=== PATIENT | female | born 1960 | race Caucasian/White ===

== ENCOUNTER 2020-04-21 11:04 | Outpatient (REF) | payer OTHER, SELFPAY ==
[2020-04-22 11:48] LABS: CT PCR NOT DETECTED (Not Detect.); NG PCR NOT DETECTED (Not Detect.)
[2020-04-27 08:37] LABS: HPV 16 RNA NOT DETECTED (NOT DETECTED); HPV mRNA E6/E7 Detected (Not Detected)
== END 2020-04-21 11:05 | disposition home or self-care (01) ==
LOC: HO.LNP 11:04
PROVIDERS: PCP Internal Medicine; Referring Provider Internal Medicine; Visit Provider Advanced Practice Midwife
DX: Z01.818 Encounter for other preprocedural examination (principal); Z12.31 Encounter for screening mammogram for malignant neoplasm of breast; Z72.0 Tobacco use; Z20.2 Contact with and (suspected) exposure to infections with a predominantly sexual mode of transmission
CPT/HCPCS: 87491; 87591; 87624; 87625; 88141; 88142

== ENCOUNTER 2020-08-11 13:55 | Outpatient (REF) | payer OTHER, SELFPAY | END 2020-08-11 13:56 | disposition home or self-care (01) | LOC: HO.LAB 13:55 | PROVIDERS: PCP Internal Medicine; Visit Provider Obstetrics & Gynecology | DX: R87.610 Atypical squamous cells of undetermined significance on cytologic smear of cervix (ASC-US) (principal); R87.810 Cervical high risk human papillomavirus (HPV) DNA test positive; E78.00 Pure hypercholesterolemia, unspecified; F17.210 Nicotine dependence, cigarettes, uncomplicated; Z91.09 Other allergy status, other than to drugs and biological substances | CPT/HCPCS: 57454; 88300; 88305 ==

== ENCOUNTER → 2020-08-18 11:52 | Outpatient (BNVA) | payer OTHER, SELFPAY | PROVIDERS: PCP Internal Medicine; Visit Provider Obstetrics & Gynecology | DX: R87.610 Atypical squamous cells of undetermined significance on cytologic smear of cervix (ASC-US) (principal); R87.810 Cervical high risk human papillomavirus (HPV) DNA test positive ==

== ENCOUNTER 2021-04-21 15:59 | Outpatient (REF) | payer MEDICARE, OTHER, SELFPAY ==
--- NOTE | ~2021-04-21 | MM_ITS ---
EXAMINATION: MM SCREENING DIGITAL BREAST TOMOSYNTHESIS, BILATERAL CLINICAL INFORMATION: Screening. Asymptomatic. The lifetime risk of breast cancer based on the Tyrer-Cuzick Model is 9%. COMPARISON: Mammography: 09/26/2017, 06/23/2015 TECHNIQUE: Digital breast tomosynthesis is performed in both the craniocaudal and mediolateral oblique views along with computer-aided detection (CAD). Synthesized 2D images are generated from the tomosynthesis. Additional left MLO view is provided. FINDINGS: The breasts are heterogeneously dense, which may obscure small masses (ACR BI-RADS breast composition Category c). Breast tissue composition borders on average fibroglandular. Denser breast parenchyma areas in the anterior breasts. There is fine, nodular parenchymal pattern similar to prior exams. There is no developing density or interval mass or architectural abnormality. No abnormal calcifications. The axilla and skin contours are unremarkable. MM/MM tomosynthesis screening BI IMPRESSION: No mammographic evidence of malignancy. ASSESSMENT: BI-RADS 1: Negative RECOMMENDATION: Routine annual mammography screening. This patient's information was entered into a reminder system with a target due date for their next mammogram.
== END 2021-04-21 16:00 | disposition home or self-care (01) ==
LOC: HO.MAMMO 15:59
PROVIDERS: PCP Internal Medicine; Visit Provider Advanced Practice Midwife
DX: Z12.31 Encounter for screening mammogram for malignant neoplasm of breast (principal)
CPT/HCPCS: 77063; 77067

== ENCOUNTER → 2025-02-02 14:00 | Outpatient (BNV) | payer MEDICARE, OTHER, SELFPAY | PROVIDERS: PCP Internal Medicine; Visit Provider Radiology Body Imaging | DX: N64.4 Mastodynia (principal) | CPT/HCPCS: 76642; 77066; G0279 ==

== ENCOUNTER 2025-02-02 14:15 | Outpatient (REF) | payer MEDICARE, OTHER, SELFPAY ==
--- NOTE | ~2025-02-02 | US_ITS ---
EXAMINATIONS: 1. MM DIAGNOSTIC DIGITAL BREAST TOMOSYNTHESIS, BILATERAL 2. Targeted ultrasound of the left breast CLINICAL INFORMATION: Left breast pain COMPARISON: Comparison made to multiple prior, most recent April 21, 2021, and most remote June 23, 2015. TECHNIQUE: Digital breast tomosynthesis is performed in both the craniocaudal and mediolateral oblique views along with computer-aided detection (CAD). Synthesized 2D images are generated from the tomosynthesis. A triangular skin marker is placed at the location of the pain in the upper outer quadrant of the left breast. FINDINGS: BREAST COMPOSITION: The breasts are heterogeneously dense, which may obscure small masses (ACR BI-RADS breast composition Category c). RIGHT BREAST: No significant masses, suspicious calcifications or other abnormalities are seen. LEFT BREAST: No significant masses, suspicious calcifications or other abnormalities are seen. In particular, no suspicious mammographic findings in the vicinity of the triangular skin marker. Targeted ultrasound was performed at the location of the pain as indicated by the patient. The survey was performed from 1:00-2:00 axis, from 2 to 10 cm from the nipple. No suspicious sonographic finding is seen. US/US breast LT limited mamm only IMPRESSION: RIGHT BREAST: Negative, no mammographic evidence of malignancy. Normal interval follow-up is recommended in 12 months. LEFT BREAST: Negative, no evidence of malignancy. In particular, no suspicious findings to account for the patient's history focal pain. Clinical follow-up is recommended. Otherwise, normal interval follow-up mammogram is recommended in 12 months. ASSESSMENT: BI-RADS 1 - Negative RECOMMENDATION: 1 year F/U Results were provided to the patient at time of visit by the technologist. This patient's information was entered into a reminder system with a target due date for their next mammogram. Electronically signed by: Mell Emerson MD 02/02/2025 03:58 PM EDT
--- OUTSIDE RECORDS SUMMARY | 2025-02-02 14:23 | XMS_ITS | Clinical Summary ---
Author Organization [facility] [employer] [facility] lin Address [address] [facility] [address] Care Team Providers Care Tele Marketing Executive Name Role Phone Pcp, No Primary Care Provider [phone] Immunizations Name Administration Dates Next Due Adacel (Tdap) Prefilled Syringe 03/30/2022 Covid-19 Unspecified 05/14/2023 Flucelvax Trivalent Prefille d Syringe (18+MOS) 07/04/2024 Fluzone Trivalent Multi-dose Vial (36+ months) 03/30/2009 Influenza, Unspecified 04/20/2021,05/21/2020, Pfizer Comirnaty Covid-19 Pr efilled Syringe (12+ yrs) 07/04/2024 Pneumococcal Polysaccharide 08/17/2023, 8 Rsv, Recombinant, Protein Etienne bunit Rsvpref3, Adjuvant Recon 08/17/2023 Shingrix Recombinant Dose 08/28/2021,05/21/2021 Td, Unspecified 04/08/2004 Tdap 10/09/2014 Social History Tobacco Use Types Packs/Day Years Used Date Smoking Tobacco: Never Assessed Comments Unknown Sex and Gender Information Value Date Recorded Sex Assigned at Not on file Legal Sex Female 1:02 PM EST Gender Identity Not on file Sexual Orientation Not on file Plan of Treatment Health Maintenance Due Date Last Done Comments Colorectal Cancer: COLONOSCO PY Screening every 10 yrs (or Modifier) 1961 Depression: Screening Annual ly using PHQ-2/9 in Adults 18 yrs or above (or HM Modifier)([facility]) 1979 Hepatitis C Virus Infection in Adolescents and Adults: Screening (or Modifier) ([facility]) 1979 SDOH Screening Reminder: Dacia lee for all adults ([facility]) 1979 Tobacco Smoking Cessation: i n Adults excluding Women: Behavioral and Pharmacotherapy Interventions ([facility]) 1979 Cervical Cancer Screenin 1-65 yrs of age (or Modifier) 1982 Cervical Cancer Screening: P ap every 3 yrs pts age 21-65 1982 Cervical Cancer: Pap Screeni ng with Modifier timing ([facility] ) 1982 Cervical Cancer: hrHPV alone or with cotesting Pap for Pts 30-65yrs screening every 5yrs ([facility] ) 1982 Colorectal Cancer Screening 45 -75 Yrs (or HM Modifier) 2006 Colorectal Cancer: FLEXIBLE SIGMOIDOSCOPY Screening every 5 yrs 2006 Colorectal Cancer: Fecal Immunochemical Test (FIT) [facility] 2006 Colorectal Cancer: High-sensitivity gFOBT Screening Annually [facility] 2006 Colorectal Cancer: Stool Col oguard Screening every 3 yrs 2006 Colorectal Cancer:CT Colonog lynnette Screening every 5 yrs 2006 Breast Cancer: Screening Dacia ually age 50-74 yrs (or HM Modifier)([facility] ) 2011 Pneumococcal Vaccination Screening: Patients 50+ yrs of age ([facility] ) (2 of 2 - PCV) 08/17/2024 08/17/2023, 04/03/2018 Flu Vaccination: Yearly for ages 18mos through 64 years (or Modifier)([facility] ) 01/30/2025 07/04/2024, 04/20/2021, 05/21/2020, Additional history exists DTaP/Tdap/Td Vaccines ([facility]) (3 - Td or Tdap) 03/30/2032 03/30/2022, 10/09/2014, 04/08/2004 Zoster/Shingles Vaccine Seri es Screening: Adults aged 18+ yrs (or HM Modifiers)([facility]) Completed 08/28/2021, 05/21/2021 Pneumococcal Vaccination Screening: Pts 0-19 & 19-49 yrs of age ([facility]) Discontinued 08/17/2023, 04/03/2018 RSV Vaccines Completed 08/17/2023 COVID-19 Vaccine Screening: Initial Series and Booster Status ([facility]) Completed 07/04/2024, 05/14/2023, 06/20/2021, Additional history exists Medical Devices Not on file Insurance MEDICARE [facility] Care Teams Tele Marketing Executive Relationship Specialty Start Date End Date Pcp, Stephanie PCP - General Family Medicine 07/04/24
--- OUTSIDE RECORDS SUMMARY | 2025-02-02 14:23 | XMS_ITS | Clinical Summary ---
Author Organization [employer] Address [address] [place] [address] [address] [place] [address] Care Team Providers Care Bus Dispatcher Interstate Name Role Phone Unavailable Primary Care Provider Unavailabl e Allergies No known active allergies Medications No known medications Social History Tobacco Use Types Packs/Day Years Used Date Smoking Tobacco: Every Day Cigarettes Smokeless Tobacco: Never Tobacco Cessation:Ready to Q uit: Not Asked; Counseling Given: Not Answered Alcohol Use Standard Drinks/Week Comments Never 0 (1 standard drink = 0.6 oz pur e alcohol) Comments Unknown Sex and Gender Information Value Date Recorded Sex Assigned at Female 08/14/2022 2:52 PM EST Legal Sex Female 2:47 PM EST Gender Identity Female 08/14/2022 2:52 PM EST Sexual Orientation Straight 08/14/2022 2: 52 PM EST Last Filed Vital Signs Vital Sign Reading Time Taken Comments Blood Pressure 130/82 08/15/2022 9:22 AM EST Pulse 60 08/15/2022 9:22 AM EST Temperature - - Respiratory Rate - - Oxygen Saturation - - Inhaled Oxygen Concentration - - Weight - - Height - - Body Mass Index - - Plan of Treatment Health Maintenance Due Date Last Done Comments CT Colonography 1961 Colonoscopy 1961 Colorectal Cancer Screening 1961 Dental Oral Exam 1961 Dental Prophylaxis 1961 Dental X-Ray: Bitewings 1961 Dental X-Ray: Full Mouth 1961 Depression Screening 1961 FIT DNA/Cologuard 1961 FIT 1961 FOBT 1961 HIV Screening 1961 SDOH Screening 1961 Sigmoidoscopy 1961 Disability Screening 1961 Alcohol/Substance Use Screening 1973 Hepatitis C Screening 1979 Pap Smear 1982 Cervical Cancer Screening 1991 HPV/Cotest 1991 Mammogram 2001 Pneumococcal Vaccine: 50+ Years (2 of 2 - PCV) 04/03/2019 04/03/2018 Tobacco Screening 08/14/2023 08/14/2022 COVID-19 Vaccine ( season) 2024 06/20/2021, 11/13/2020, 10/23/2020 DTaP/Tdap/Td Vaccines (2 - Td or Tdap) 10/09/2024 10/09/2014, 04/08/2004 Influenza Vaccine (#1) 2025 , 04/20/2021, 05/21/2020, Additional history exists RSV Patients and Patients Aged 60 years or older (1 - 1-dose 75+ series) 01/29/2036 Zoster Vaccines Completed 08/28/2021, 05/21/2021 HIB Vaccines Aged Out No longer eligi ble based on patient's age to complete this topic HPV Vaccines Aged Out No longer eligi ble based on patient's age to complete this topic Hepatitis A Vaccines Aged Out No long er eligible based on patient's age to complete this topic Hepatitis B Vaccines Aged Out No long er eligible based on patient's age to complete this topic IPV Vaccines Aged Out No longer eligi ble based on patient's age to complete this topic Meningococcal B Vaccine Aged Out No l onger eligible based on patient's age to complete this topic Meningococcal Vaccine Aged Out No nay dany eligible based on patient's age to complete this topic RSV under 20 months Aged Out No longe r eligible based on patient's age to complete this topic Rotavirus Vaccines Aged Out No longer eligible based on patient's age to complete this topic
== END 2025-02-02 14:16 | disposition home or self-care (01) ==
LOC: HO.MAMMO 14:15
PROVIDERS: PCP Internal Medicine; Visit Provider Internal Medicine
DX: N64.4 Mastodynia (principal)
CPT/HCPCS: 76642; 77062; 77066